=== PATIENT | male | born 1965 | race Native Hawaiian/Other Pacific Islander ===

== ENCOUNTER 2017-04-26 18:52 | Emergency (ER) | payer OTHER ==
[~2017-04-26] VITALS: Ht 180.3 cm; Wt 54.0 kg
== END 2017-04-26 19:53 | disposition home or self-care (01) ==
LOC: ED 18:52
DX: M79.602 Pain in left arm (principal)
CPT/HCPCS: 99281

== ENCOUNTER 2018-01-20 23:20 | Observation (INO) | payer OTHER ==
[~2018-01-20] VITALS: Ht 180.3 cm; Wt 53.2 kg
[2018-01-20 23:19] VITALS: BP 124/70; TEMP 100.6
[2018-01-21 00:13] LABS: PLATELET COUNT 194 K/uL (142-355)
[2018-01-21 03:50] VITALS: BP 121/81; TEMP 97.6; Ht 180.3 cm; Wt 53.2 kg
[2018-01-21 05:10] LABS: PARTIAL THROMBOPLASTIN TIME 27.4 SECONDS (24.5-33.6)
[2018-01-21 08:01] VITALS: BP 108/58; TEMP 97.4
[2018-01-21 12:07] VITALS: BP 122/63; TEMP 97.5
[2018-01-21] MEDS ORDERED: Z-PAK PO (12:33)
[2018-01-21] MEDS ORDERED: PRED10TA27 PO (12:33)
[2018-01-21] MEDS ORDERED: ASPIR-8181 MG PO (12:33)
== END 2018-01-21 13:00 | disposition home or self-care (01) ==
LOC: ED 23:20 → MED/SURG 01-21 01:20
PROVIDERS: ADMIT Family Medicine
DX: R07.89 Other chest pain (principal); I25.10 Atherosclerotic heart disease of native coronary artery without angina pectoris; J44.1 Chronic obstructive pulmonary disease with (acute) exacerbation; Z72.0 Tobacco use
CPT/HCPCS: 36415; 80053; 82550; 84484; 85027; 85610; 85730; 93005; 94760; 96365; 96366; 99220; 99284; G0378

== ENCOUNTER 2018-04-14 23:38 | Emergency (ER) | payer OTHER ==
[~2018-04-14] VITALS: Ht 180.3 cm; Wt 53.1 kg
[~2018-04-14 23:38] MED LIST: ASPIR-8181 MG PO; PRED10TA27 PO; Z-PAK PO
[2018-04-14 23:58] VITALS: BP 113/69; TEMP 98.1
[2018-04-15] MEDS ORDERED: ALBUSOL INH (00:01)
[2018-04-15] MEDS ORDERED: PROAIR HFA108 MCG/AC INH (00:01)
== END 2018-04-15 00:26 | disposition home or self-care (01) ==
LOC: ED 23:38
DX: K40.90 Unilateral inguinal hernia, without obstruction or gangrene, not specified as recurrent (principal)
CPT/HCPCS: 96372; 99282; J1885

== ENCOUNTER 2018-08-30 23:25 | Emergency (ER) | payer OTHER ==
[~2018-08-30] VITALS: Ht 180.3 cm; Wt 57.2 kg
[~2018-08-30 23:25] MED LIST changes: +ALBUSOL INH; +PROAIR HFA108 MCG/AC INH
[2018-08-30] MEDS ORDERED: NITR0.4S2 SL (23:45)
[2018-08-30] MEDS ORDERED: ASPIR-8181 MG PO (23:45)
[2018-08-30] MEDS ORDERED: METO-837 PO (23:45)
[2018-08-30] MEDS ORDERED: RANO500T PO (23:46)
[2018-08-30] MEDS ORDERED: NITR0.2D21 TD (23:46)
[2018-08-31 00:12] LABS: PLATELET COUNT 205 K/uL (142-355)
[2018-08-31 01:12] LABS: POTASSIUM 3.1 mmol/L (3.6-5.2); SODIUM 140 mmol/L (136-145)
[2018-08-31 03:42] VITALS: BP 114/75; TEMP 98.5
== END 2018-08-31 03:47 | disposition home or self-care (01) ==
LOC: ED 23:25
PROVIDERS: Emergency Medicine
DX: R07.89 Other chest pain (principal); R00.1 Bradycardia, unspecified
CPT/HCPCS: 36415; 80053; 82550; 82553; 84484; 85027; 93005; 96374; 99284; J2270

== ENCOUNTER 2018-12-07 11:52 | Outpatient (CLI) | payer OTHER ==
[~2018-12-07 11:52] MED LIST changes: +METO-837 PO; +NITR0.2D21 TD; +NITR0.4S2 SL; +RANO500T PO
== END 2018-12-07 23:06 | disposition home or self-care (01) ==
LOC: RAD 11:52
DX: J44.1 Chronic obstructive pulmonary disease with (acute) exacerbation (principal)

== ENCOUNTER 2019-01-11 12:22 | Outpatient (CLI) | payer OTHER | END 2019-01-11 20:32 | disposition home or self-care (01) | LOC: RAD 12:22 | DX: R55 Syncope and collapse (principal) ==

== ENCOUNTER 2019-02-05 08:32 | Outpatient (CLI) | payer OTHER | END 2019-02-05 20:22 | disposition home or self-care (01) | LOC: RESP 08:32 | DX: R06.02 Shortness of breath (principal) ==

== ENCOUNTER 2019-03-08 10:22 | Outpatient (CLI) | payer OTHER | END 2019-03-08 19:45 | disposition home or self-care (01) | LOC: MRI 10:22 | DX: K14.8 Other diseases of tongue (principal) | CPT/HCPCS: 36415; 82565; 84520; A9576 ==

== ENCOUNTER 2019-03-12 17:32 | Outpatient (CLI) | payer OTHER | END 2019-03-12 20:02 | disposition home or self-care (01) | LOC: RAD 17:32 | DX: R05 Cough (principal) ==

== ENCOUNTER 2019-04-26 10:10 | Outpatient (CLI) | payer OTHER | END 2019-04-26 19:51 | disposition home or self-care (01) | LOC: CT 10:10 | DX: F17.200 Nicotine dependence, unspecified, uncomplicated (principal) | CPT/HCPCS: G0297-TC ==

== ENCOUNTER 2019-07-05 22:20 | Emergency (ER) | payer OTHER ==
[~2019-07-05] VITALS: Ht 180.3 cm; Wt 57.2 kg
[2019-07-05 22:53] LABS: POTASSIUM 3.7 mmol/L (3.6-5.2); SODIUM 136 mmol/L (136-145)
[2019-07-05 23:02] LABS: PLATELET COUNT 206 K/uL (142-355)
[2019-07-06 00:43] VITALS: BP 133/69; TEMP 98
== END 2019-07-06 00:43 | disposition home or self-care (01) ==
LOC: ED 22:20
PROVIDERS: Family Medicine
DX: R07.89 Other chest pain (principal); R00.1 Bradycardia, unspecified
CPT/HCPCS: 36415; 80053; 82550; 83880; 84484; 85027; 85379; 86318; 93005; 96374; 96375; 99284; J1885; J2405

== ENCOUNTER 2019-12-10 15:10 | Outpatient (CLI) | payer OTHER | END 2019-12-10 20:10 | disposition home or self-care (01) | LOC: RAD 15:10 | DX: M70.22 Olecranon bursitis, left elbow (principal) ==

== ENCOUNTER 2019-12-16 23:52 | Emergency (ER) | payer OTHER ==
[~2019-12-16] VITALS: Ht 180.3 cm; Wt 54.0 kg
[2019-12-17 01:20] VITALS: BP 128/68; TEMP 98.9
== END 2019-12-17 01:20 | disposition home or self-care (01) ==
LOC: ED 23:52
DX: S80.812A Abrasion, left lower leg, initial encounter (principal); S80.12XA Contusion of left lower leg, initial encounter; W23.0XXA Caught, crushed, jammed, or pinched between moving objects, initial encounter; Y92.89 Other specified places as the place of occurrence of the external cause
CPT/HCPCS: 96372; 99283; J1885

== ENCOUNTER 2020-02-11 22:09 | Emergency (ER) | payer OTHER ==
[~2020-02-11] VITALS: Ht 180.3 cm; Wt 54.4 kg
[2020-02-11 22:40] LABS: PLATELET COUNT 213 K/uL (142-355)
[2020-02-11 22:59] LABS: SODIUM 138 mmol/L (136-145)
[2020-02-12 00:06] VITALS: BP 111/78; TEMP 98.8
== END 2020-02-12 00:08 | disposition home or self-care (01) ==
LOC: ED 22:09
PROVIDERS: Emergency Medicine Emergency Medical Services
DX: J20.9 Acute bronchitis, unspecified (principal); Z20.828 Contact with and (suspected) exposure to other viral communicable diseases; F17.210 Nicotine dependence, cigarettes, uncomplicated
CPT/HCPCS: 36415; 80053; 83880; 84484; 85027; 87635; 93005; 96374; 96375; 99284; J1100; J2405; U0003

== ENCOUNTER 2020-02-25 22:37 | Emergency (ER) | payer OTHER ==
[~2020-02-25] VITALS: Ht 180.3 cm; Wt 55.3 kg
[2020-02-25 23:53] LABS: PLATELET COUNT 199 K/uL (142-355)
[2020-02-26 00:06] LABS: POTASSIUM 3.8 mmol/L (3.6-5.2); SODIUM 136 mmol/L (136-145)
[2020-02-26 00:27] LABS: PARTIAL THROMBOPLASTIN TIME 26.1 SECONDS (24.5-33.6)
[2020-02-26 01:15] VITALS: BP 118/70; TEMP 98.2
== END 2020-02-26 01:15 | disposition home or self-care (01) ==
LOC: ED 22:37
PROVIDERS: Hospitalist
DX: J44.1 Chronic obstructive pulmonary disease with (acute) exacerbation (principal); J40 Bronchitis, not specified as acute or chronic; Z20.828 Contact with and (suspected) exposure to other viral communicable diseases; F17.210 Nicotine dependence, cigarettes, uncomplicated
CPT/HCPCS: 36415; 36600; 80053; 82550; 82805; 83880; 84484; 85027; 85610; 85730; 87635; 87651; 96365; 96375; 99284; J0696; J1100; J1940; U0003

== ENCOUNTER 2020-03-12 10:34 | Inpatient (IN) | payer OTHER ==
[~2020-03-12] VITALS: Ht 180.3 cm; Wt 58.2 kg
[2020-03-12 12:50] LABS: PLATELET COUNT 205 K/uL (142-355)
[2020-03-12 13:07] LABS: POTASSIUM 3.9 mmol/L (3.6-5.2)
[2020-03-12 13:45] VITALS: BP 121/64; TEMP 98.1; Ht 180.3 cm; Wt 58.2 kg
[2020-03-12 16:00] VITALS: BP 117/58; TEMP 97.7
[2020-03-12 20:00] VITALS: BP 108/63; TEMP 98.3
[2020-03-13] VITALS: BP 98/56; TEMP 98.6
[2020-03-13] MEDS ORDERED: RANO1000T PO (01:57)
[2020-03-13] MEDS ORDERED: CLOP75TA2 PO (01:58)
[2020-03-13] MEDS ORDERED: OMEP20CA PO (01:59)
[2020-03-13] MEDS ORDERED: MELOXICAM7.5 MG PO (01:59)
[2020-03-13] MEDS ORDERED: LIPITOR40 MG PO (02:01)
[2020-03-13] MEDS ORDERED: NITR0.4D6 TD (02:02)
[2020-03-13 04:00] VITALS: BP 127/66; TEMP 98
[2020-03-13 08:00] VITALS: BP 111/52; TEMP 98.3
[2020-03-13 12:00] VITALS: BP 127/67; TEMP 97.9
[2020-03-13 15:09] LABS: PLATELET COUNT 176 K/uL (142-355)
[2020-03-13 15:30] LABS: POTASSIUM 3.4 mmol/L (3.6-5.2)
[2020-03-13 16:00] VITALS: BP 106/54; TEMP 97.8
[2020-03-13 20:00] VITALS: BP 108/58; TEMP 98.1
[2020-03-14] VITALS: BP 103/53; TEMP 97.9
[2020-03-14 04:03] VITALS: BP 108/57; TEMP 98.1
[2020-03-14 12:00] VITALS: BP 110/46; TEMP 97.9
[2020-03-14 13:38] LABS: PLATELET COUNT 162 K/uL (142-355)
[2020-03-14 13:50] LABS: POTASSIUM 4.3 mmol/L (3.6-5.2)
[2020-03-14 16:00] VITALS: BP 106/65; TEMP 97.5
[2020-03-14 20:00] VITALS: BP 127/66; TEMP 98.9
[2020-03-14 23:55] VITALS: BP 119/67; TEMP 98.6
[2020-03-15 04:00] VITALS: BP 122/75; TEMP 98.8
[2020-03-15 05:35] LABS: POTASSIUM 4.3 mmol/L (3.6-5.2)
[2020-03-15 05:55] LABS: PLATELET COUNT 141 K/uL (142-355)
[2020-03-15 08:00] VITALS: BP 122/68; TEMP 97.8
[2020-03-15 12:00] VITALS: BP 118/75; TEMP 97.6
== END 2020-03-15 15:50 | disposition home or self-care (01) | DRG 190 ==
LOC: MED/SURG 10:34
PROVIDERS: ADMIT Family Medicine
DX: J44.0 Chronic obstructive pulmonary disease with (acute) lower respiratory infection (principal); J18.8 Other pneumonia, unspecified organism; J44.1 Chronic obstructive pulmonary disease with (acute) exacerbation; E44.1 Mild protein-calorie malnutrition; D72.828 Other elevated white blood cell count; I10 Essential (primary) hypertension; E87.1 Hypo-osmolality and hyponatremia; E87.8 Other disorders of electrolyte and fluid balance, not elsewhere classified; D64.89 Other specified anemias; F17.200 Nicotine dependence, unspecified, uncomplicated
CPT/HCPCS: 36415; 80053; 83735; 84100; 85027; 87040; 87635; 93005; 99220; G0378; G0379; J0456; J0696; J2930; J3475; U0003

== ENCOUNTER 2020-05-01 11:29 | Outpatient (CLI) | payer OTHER ==
[~2020-05-01 11:29] MED LIST changes: +CLOP75TA2 PO; +LIPITOR40 MG PO; +MELOXICAM7.5 MG PO; +NITR0.4D6 TD; +OMEP20CA PO; +RANO1000T PO
== END 2020-05-01 20:16 | disposition home or self-care (01) ==
LOC: RAD 11:29
PROVIDERS: ATTEND Nurse Practitioner Family
DX: M54.12 Radiculopathy, cervical region (principal)

== ENCOUNTER 2020-06-02 10:38 | Outpatient (CLI) | payer OTHER | END 2020-06-02 20:32 | disposition home or self-care (01) | LOC: EMG 10:38 | PROVIDERS: ATTEND Nurse Practitioner Family | DX: G56.01 Carpal tunnel syndrome, right upper limb (principal) | CPT/HCPCS: 95860; 95907; 95910 ==

== ENCOUNTER 2020-07-17 11:09 | Outpatient (CLI) | payer OTHER | END 2020-07-17 20:08 | disposition home or self-care (01) | LOC: RESP 11:09 | PROVIDERS: ATTEND Internal Medicine Sleep Medicine | DX: J44.9 Chronic obstructive pulmonary disease, unspecified (principal) ==

== ENCOUNTER 2020-08-05 12:19 | Emergency (ER) | payer OTHER ==
[~2020-08-05] VITALS: Ht 180.3 cm; Wt 54.4 kg
[2020-08-05 12:41] VITALS: TEMP 98.2
[2020-08-05 13:45] LABS: PLATELET COUNT 226 K/uL (142-355)
[2020-08-05 13:57] LABS: POTASSIUM 3.7 mmol/L (3.6-5.2)
[2020-08-05 15:48] VITALS: BP 121/60
== END 2020-08-05 15:48 | disposition home or self-care (01) ==
LOC: ED 12:19
PROVIDERS: Family Medicine
DX: J44.9 Chronic obstructive pulmonary disease, unspecified (principal); J06.9 Acute upper respiratory infection, unspecified; R05 Cough; Z20.828 Contact with and (suspected) exposure to other viral communicable diseases; F17.210 Nicotine dependence, cigarettes, uncomplicated
CPT/HCPCS: 80053; 85027; 87502; 87635; 87651; 96372; 99283; J2930; U0003

== ENCOUNTER 2020-11-09 19:06 | Emergency (ER) | payer OTHER ==
[2020-11-22 21:24] LABS: PLATELET COUNT 220 K/uL (142-355)
[2020-11-22 21:26] LABS: POTASSIUM 4.1 mmol/L (3.6-5.2); SODIUM 136 mmol/L (136-145)
== END 2020-11-10 00:40 | disposition short-term general hospital (02) ==
LOC: ED 19:06
PROVIDERS: Hospitalist
DX: R53.1 Weakness (principal); R26.89 Other abnormalities of gait and mobility; R47.89 Other speech disturbances; R26.2 Difficulty in walking, not elsewhere classified; R05 Cough; R06.09 Other forms of dyspnea
CPT/HCPCS: 36415; 80053; 80320; 82550; 82553; 83880; 84484; 85027; 93005; 99284

== ENCOUNTER 2020-11-20 21:39 | Emergency (ER) | payer OTHER ==
[~2020-11-20] VITALS: Ht 180.3 cm; Wt 54.4 kg
[2020-11-20 21:42] VITALS: TEMP 98.3
[2020-11-20 22:17] LABS: PLATELET COUNT 205 K/uL (142-355)
[2020-11-20 22:28] LABS: POTASSIUM 4.2 mmol/L (3.6-5.2); SODIUM 141 mmol/L (136-145)
[2020-11-20 22:39] LABS: PARTIAL THROMBOPLASTIN TIME 24.1 SECONDS (24.5-33.6)
[2020-11-20 23:34] VITALS: BP 122/74
== END 2020-11-20 23:52 | disposition home or self-care (01) ==
LOC: ED 21:39
PROVIDERS: Emergency Medicine
DX: R07.89 Other chest pain (principal); J43.8 Other emphysema; F17.210 Nicotine dependence, cigarettes, uncomplicated
CPT/HCPCS: 80053; 82550; 83735; 83880; 84484; 85027; 85379; 85610; 85730; 93005; 99283

== ENCOUNTER 2020-12-12 08:27 | Outpatient (CLI) | payer OTHER | END 2020-12-12 19:06 | disposition home or self-care (01) | LOC: CT 08:27 | PROVIDERS: ATTEND Nurse Practitioner Family | DX: F17.210 Nicotine dependence, cigarettes, uncomplicated (principal) ==

== ENCOUNTER 2020-12-29 09:39 | Outpatient (CLI) | payer OTHER | END 2020-12-29 21:43 | disposition home or self-care (01) | LOC: MRI 09:39 | PROVIDERS: ATTEND Nurse Practitioner Family | DX: R42 Dizziness and giddiness (principal) ==

== ENCOUNTER 2021-01-02 11:13 | Outpatient (CLI) | payer OTHER | END 2021-01-02 23:09 | disposition home or self-care (01) | LOC: RAD 11:13 | PROVIDERS: ATTEND Nurse Practitioner Family | DX: S50.02XA Contusion of left elbow, initial encounter (principal) ==

== ENCOUNTER 2021-06-24 10:32 | Outpatient (CLI) | payer OTHER ==
[~2021-06-24] VITALS: Ht 180.3 cm; Wt 56.2 kg
== END 2021-06-24 19:37 | disposition home or self-care (01) ==
LOC: INF 10:32
PROVIDERS: ATTEND Nurse Practitioner Family
DX: U07.1 COVID-19 (principal); Z23 Encounter for immunization
CPT/HCPCS: 96365; Q0247

== ENCOUNTER 2021-07-03 12:07 | Emergency (ER) | payer OTHER ==
[~2021-07-03] VITALS: Ht 180.3 cm; Wt 56.2 kg
[2021-07-03 12:10] VITALS: TEMP 97.9
[2021-07-03] MEDS ORDERED: METO-837 PO (12:36)
[2021-07-03 12:44] LABS: PLATELET COUNT 256 K/uL (142-355)
[2021-07-03 12:53] LABS: POTASSIUM 4.4 mmol/L (3.6-5.2)
[2021-07-03 15:51] VITALS: BP 113/80
== END 2021-07-03 16:06 | disposition short-term general hospital (02) ==
LOC: ED 12:07
PROVIDERS: Emergency Medicine
DX: G45.8 Other transient cerebral ischemic attacks and related syndromes (principal); Z11.52 Encounter for screening for COVID-19
CPT/HCPCS: 80053; 81000; 84484; 85027; 85610; 85730; 87635; 93005; 99284; U0003

== ENCOUNTER 2021-07-30 08:38 | Outpatient (CLI) | payer OTHER | END 2021-07-30 21:03 | disposition home or self-care (01) | LOC: US 08:38 | PROVIDERS: ATTEND Nurse Practitioner Family | DX: G45.9 Transient cerebral ischemic attack, unspecified (principal) ==

== ENCOUNTER 2021-08-21 09:40 | Outpatient (CLI) | payer OTHER | END 2021-08-21 20:51 | disposition home or self-care (01) | LOC: CT 09:40 | PROVIDERS: ATTEND Nurse Practitioner Family | DX: F17.210 Nicotine dependence, cigarettes, uncomplicated (principal) ==

== ENCOUNTER 2021-09-10 13:46 | Outpatient (CLI) | payer OTHER ==
[2021-09-10 14:00] LABS: PLATELET COUNT 225 K/uL (142-355)
[2021-09-10 14:04] LABS: POTASSIUM 4.4 mmol/L (3.6-5.2)
== END 2021-09-10 19:12 | disposition home or self-care (01) ==
LOC: LABW 13:46
PROVIDERS: ATTEND Nurse Practitioner Family
DX: J44.1 Chronic obstructive pulmonary disease with (acute) exacerbation (principal)
CPT/HCPCS: 36415; 80053; 85027

== ENCOUNTER 2021-11-13 14:36 | Outpatient (CLI) | payer OTHER ==
[2021-11-13 14:56] LABS: PLATELET COUNT 209 K/uL (142-355)
[2021-11-13 15:07] LABS: POTASSIUM 3.5 mmol/L (3.6-5.2)
== END 2021-11-13 19:22 | disposition home or self-care (01) ==
LOC: LABW 14:36
PROVIDERS: ATTEND Family Medicine
DX: J44.1 Chronic obstructive pulmonary disease with (acute) exacerbation (principal); R06.09 Other forms of dyspnea
CPT/HCPCS: 36415; 36600; 80053; 82805; 83880; 85027; 87070; 87205; 93005

== ENCOUNTER 2022-02-20 23:27 | Emergency (ER) | payer OTHER ==
[~2022-02-20] VITALS: Ht 180.3 cm; Wt 54.4 kg
[2022-02-21 00:44] LABS: POTASSIUM 3.4 mmol/L (3.6-5.2)
[2022-02-21 00:47] LABS: PLATELET COUNT 311 K/uL (142-355)
[2022-02-21 02:35] VITALS: BP 124/83; TEMP 98.2
== END 2022-02-21 02:35 | disposition home or self-care (01) ==
LOC: ED 23:27
PROVIDERS: Family Medicine
DX: J44.1 Chronic obstructive pulmonary disease with (acute) exacerbation (principal); J40 Bronchitis, not specified as acute or chronic; F17.210 Nicotine dependence, cigarettes, uncomplicated; Z20.822 Contact with and (suspected) exposure to COVID-19
CPT/HCPCS: 80053; 85027; 87502; 87635; 87651; 96374; 99284; J2930; U0003

== ENCOUNTER 2022-03-22 12:43 | Outpatient (CLI) | payer OTHER | END 2022-03-22 19:35 | disposition home or self-care (01) | LOC: MRI 12:43 | PROVIDERS: ATTEND Psychiatry & Neurology Neurology | DX: G45.9 Transient cerebral ischemic attack, unspecified (principal) ==

== ENCOUNTER 2022-06-15 12:05 | Outpatient (CLI) | payer OTHER | END 2022-06-15 19:38 | disposition home or self-care (01) | LOC: RAD 12:05 | PROVIDERS: ATTEND Nurse Practitioner Family | DX: M25.511 Pain in right shoulder (principal); M25.512 Pain in left shoulder; S20.211A Contusion of right front wall of thorax, initial encounter; S20.212A Contusion of left front wall of thorax, initial encounter; Y92.89 Other specified places as the place of occurrence of the external cause ==

== ENCOUNTER 2022-08-24 09:59 | Outpatient (CLI) | payer OTHER | END 2022-08-24 22:10 | disposition home or self-care (01) | LOC: CT 09:59 | PROVIDERS: ATTEND Nurse Practitioner Family | DX: F17.210 Nicotine dependence, cigarettes, uncomplicated (principal) ==

== ENCOUNTER 2022-09-23 12:35 | Outpatient (CLI) | payer OTHER ==
[2022-09-23 12:58] LABS: PLATELET COUNT 207 K/uL (142-355)
== END 2022-09-23 19:07 | disposition home or self-care (01) ==
LOC: LABW 12:35
PROVIDERS: ATTEND Nurse Practitioner Family
DX: J43.2 Centrilobular emphysema (principal)
CPT/HCPCS: 36415; 82785; 85027; 86003

== ENCOUNTER 2022-10-05 12:08 | Emergency (ER) | payer OTHER ==
[~2022-10-05] VITALS: Ht 180.3 cm; Wt 63.5 kg
[2022-10-05 12:10] VITALS: BP 125/66; TEMP 98.8
[2022-10-05 13:03] LABS: PLATELET COUNT 222 K/uL (142-355)
[2022-10-05 13:13] LABS: POTASSIUM 4.2 mmol/L (3.6-5.2)
== END 2022-10-05 14:08 | disposition home or self-care (01) ==
LOC: ED 12:08
PROVIDERS: Emergency Medicine
DX: J44.1 Chronic obstructive pulmonary disease with (acute) exacerbation (principal); F17.210 Nicotine dependence, cigarettes, uncomplicated
CPT/HCPCS: 80053; 83880; 84484; 85027; 93005; 94664; 96372; 99283; J1100

== ENCOUNTER 2022-11-01 11:13 | Observation (INO) | payer OTHER ==
[~2022-11-01] VITALS: Ht 180.3 cm; Wt 53.1 kg
[2022-11-01 11:30] VITALS: BP 148/63; TEMP 98.1
[2022-11-01 11:52] LABS: PLATELET COUNT 167 K/uL (142-355)
[2022-11-01 12:02] LABS: POTASSIUM 3.4 mmol/L (3.6-5.2)
[2022-11-01 13:30] VITALS: BP 113/69
[2022-11-01] MEDS ORDERED: LIPITOR40 MG PO (15:54)
[2022-11-01] MEDS ORDERED: MECLIZINE 2525 MG PO (15:56)
[2022-11-01] MEDS ORDERED: ASPIRIN/ENTERIC81 MG PO (15:57)
[2022-11-01] MEDS ORDERED: ALBU0.0813 INH (15:59)
[2022-11-01] MEDS ORDERED: IPRATROPIUM 0.06% NAS (16:03)
[2022-11-01 18:34] VITALS: BP 11/62; TEMP 96.8; Ht 180.3 cm; Wt 53.1 kg
[2022-11-01 19:30] VITALS: BP 122/68; TEMP 98.5
[2022-11-02] VITALS: BP 105/58; TEMP 98.7
[2022-11-02 04:00] VITALS: BP 107/60; TEMP 98.5
[2022-11-02 05:50] LABS: PLATELET COUNT 150 K/uL (142-355)
[2022-11-02 06:07] LABS: POTASSIUM 3.6 mmol/L (3.6-5.2)
[2022-11-02 08:00] VITALS: BP 107/61; TEMP 98.3
[2022-11-02 12:03] VITALS: BP 105/54; TEMP 98.5
[2022-11-02] MEDS ORDERED: CEFD300C2 PO (13:08)
[2022-11-02] MEDS ORDERED: DECADRON6 MG PO (13:08)
== END 2022-11-02 14:37 | disposition home or self-care (01) ==
LOC: ED 11:13 → MED/SURG 13:35
PROVIDERS: Family Medicine; ADMIT Internal Medicine; ATTEND Internal Medicine
DX: J44.1 Chronic obstructive pulmonary disease with (acute) exacerbation (principal); Z72.0 Tobacco use; I25.10 Atherosclerotic heart disease of native coronary artery without angina pectoris; I50.9 Heart failure, unspecified; Z79.01 Long term (current) use of anticoagulants; R07.89 Other chest pain; R06.02 Shortness of breath; I11.0 Hypertensive heart disease with heart failure; Z79.899 Other long term (current) drug therapy
CPT/HCPCS: 36415; 80053; 83735; 83880; 84484; 85027; 93005; 94664; 94760; 96367; 96372; 96374; 96375; 99221; 99284; G0378; J0696; J1650; J2920; J2930

== ENCOUNTER 2022-12-21 10:48 | Outpatient (CLI) | payer OTHER ==
[~2022-12-21 10:48] MED LIST changes: +ALBU0.0813 INH; +ASPIRIN/ENTERIC81 MG PO; +CEFD300C2 PO; +DECADRON6 MG PO; +IPRATROPIUM 0.06% NAS; +MECLIZINE 2525 MG PO
[2022-12-21 12:14] LABS: PLATELET COUNT 213 K/uL (142-355)
== END 2022-12-21 20:22 | disposition home or self-care (01) ==
LOC: LABW 10:48
PROVIDERS: ATTEND Nurse Practitioner Family
DX: J43.2 Centrilobular emphysema (principal)
CPT/HCPCS: 36415; 85027; 86003